=== PATIENT | female | born 1930 | race Asian ===

== ENCOUNTER 2017-10-17 10:36 | Inpatient (IN) | payer MEDICAID, MEDICARE ==
[~2017-10-17] VITALS: Ht 149.9 cm; Wt 40.4 kg
[~2017-10-17 10:36] MED LIST: ASA81 PO; HYDR12.55 PO; ISO10 PO; LIP10 PO; LISI-600 PO; NOR10 PO
[2017-10-17 10:38] VITALS: BP_SYST 147
[2017-10-17] MEDS ORDERED: PRAM0.5T3 PO (10:53)
[2017-10-17] MEDS ORDERED: DONE5TAB3 PO (10:53)
[2017-10-17] MEDS ORDERED: MELO15TA13 PO (10:53)
[2017-10-17 11:07] LABS: BASOPHILS # (AUTO) 0.1 K/uL (0.0-0.2); BASOPHILS % (AUTO) 0.7 % (0.0-2.0); EOSINOPHILS # (AUTO) 0.2 K/uL (0.0-0.4); EOSINOPHILS % (AUTO) 2.3 % (0.0-4.0); HEMOGLOBIN 10.8 g/dL (12.0-16.0); LYMPHOCYTES # (AUTO) 1.4 K/uL (1.0-5.5); LYMPHOCYTES % (AUTO) 14.1 % (20.5-51.5); MEAN CORPUSCULAR HEMOGLOBIN 32 pg (27-31); MEAN CORPUSCULAR HGB CONC 34 % (32-36); MEAN CORPUSCULAR VOLUME 95 fL (79.0-98.0); MONOCYTES # (AUTO) 0.4 K/uL (0.0-1.0); NEUTROPHILS # (AUTO) 7.6 K/uL (1.8-7.7); NEUTROPHILS % (AUTO) 78.9 % (40.0-70.0); PLATELET COUNT (AUTO) 252 K/uL (130-430); RED BLOOD CELL COUNT(AUTO) 3.37 MIL/uL (4.2-6.2); RED CELL DISTRIBUTION WIDTH 12.7 % (9.0-15.0); WHITE BLOOD COUNT (AUTO) 9.7 K/uL (4.8-10.8)
[2017-10-17 11:25] LABS: PROTHROMBIN TIME 9.9 SECS (9.5-12.5)
[2017-10-17 11:39] LABS: BILIRUBIN,URINE NEGATIVE (NEGATIVE); CLARITY/URINE CLEAR (CLEAR); COLOR,URINE YELLOW (YELLOW); GLUCOSE,URINE NEGATIVE (NEGATIVE); KETONES,URINE NEGATIVE (NEGATIVE); LEUKOCYTE ESTERASE ,URINE 1+ (NEGATIVE); NITRITE, URINE NEGATIVE (NEGATIVE); PH,URINE 5.5 (5.0-8.0); PROTEIN URINE NEGATIVE (NEGATIVE); UROBILINOGEN,URINE 0.2 (0.2-1.0)
[2017-10-17 11:42] LABS: BLOOD, URINE TRACE (NEGATIVE)
[2017-10-17 11:54] LABS: BARBITURATE, URINE NEGATIVE (NEG <=200); BENZODIAZEPINE, URINE NEGATIVE (NEG <=150); CANNABINOID, URINE NEGATIVE (NEG <=50); COCAINE, URINE NEGATIVE (NEG <=150); METHAMPHETAMINES SCREEN,URINE NEGATIVE (NEG <=500); OPIATE, URINE NEGATIVE (NEG <=100); PHENCYCLIDINE SCREEN,URINE NEGATIVE (NEG <=25); UR TRICYCLIC ANTIDEPRESSANTS NEGATIVE (NEG <=300); URINE AMPHETAMINE NEGATIVE (NEG <=500); URINE METHADONE NEGATIVE (NEG <=200); URINE OXYCODONE SCREEN NEGATIVE (NEG <=100); URINE PROPOXYPHENE SCREEN NEGATIVE (NEG <=300)
[2017-10-17 12:00] LABS: BACTERIA,URINE RARE /HPF (None Seen); MUCUS,URINE 1+ /LPF (None Seen); RBC,URINE 0-3 /HPF (0-3)
[2017-10-17 12:04] LABS: ANION GAP 12 (5-15); CHLORIDE 107 mmol/L (98-107); CREATININE 1.65 mg/dL (0.55-1.30); GLUCOSE 92 mg/dL (70-99); POTASSIUM 4.8 mmol/L (3.5-5.1); SODIUM SERUM 145 mmol/L (136-145); UREA NITROGEN, BLOOD 43 mg/dL (8-21)
[2017-10-17 12:14] LABS: ALANINE AMINOTRANSFERASE 21 U/L (12-78); ALBUMIN 3.9 g/dL (3.4-4.8); ASPARTATE AMINOTRANSFERASE 25 U/L (10-37); FREE T4 (FREE THYROXINE) 1.1 ng/dl (0.8-1.5); TOTAL BILIRUBIN 0.5 mg/dL (0.0-1.0)
[2017-10-17 12:20] LABS: ALCOHOL, BLOOD < 3 mg/dL (<10)
[2017-10-17] MEDS ORDERED: NS 500 ML IV ONE (13:30)
[2017-10-17] MEDS ORDERED: PANTOPRAZOLE SODIUM 40 MG/VIAL (PROTONIX) IVP ONE (13:30)
[2017-10-17 13:35] VITALS: BP_SYST 153
[2017-10-17] MEDS ORDERED: PRAMIPEXOLE DI-HCL 0.25 MG TABLET PO PRN (16:15)
[2017-10-17] MEDS ORDERED: MELOXICAM 7.5 MG TABLET PO PRN (16:15)
[2017-10-17 16:56] VITALS: BP_SYST 139
[2017-10-17] MEDS: KCL 20 mEq in 0.45% NS 1000 mL 1,000 ML IV SCH (17:49)
[2017-10-17 20:00] VITALS: BP_SYST 127
[2017-10-17] MEDS: ISOSORBIDE DINITRATE 10 MG TABLET (ISORDIL) PO SCH (21:06)
[2017-10-17] MEDS: ATORVASTATIN 10 MG TABLET PO SCH (21:06)
[2017-10-17] MEDS: DONEPEZIL HCL 5 MG TABLET (ARICEPT) PO SCH (21:06)
[2017-10-18 00:23] VITALS: BP_SYST 98
[2017-10-18] MEDS: KCL 20 mEq in 0.45% NS 1000 mL 1,000 ML IV SCH ×2 (05:24→18:43)
[2017-10-18 07:14] LABS: BASOPHILS # (AUTO) 0.1 K/uL (0.0-0.2); BASOPHILS % (AUTO) 0.9 % (0.0-2.0); EOSINOPHILS # (AUTO) 0.5 K/uL (0.0-0.4); EOSINOPHILS % (AUTO) 6.1 % (0.0-4.0); LYMPHOCYTES # (AUTO) 1.3 K/uL (1.0-5.5); LYMPHOCYTES % (AUTO) 15.6 % (20.5-51.5); MEAN CORPUSCULAR HEMOGLOBIN 32 pg (27-31); MEAN CORPUSCULAR HGB CONC 33 % (32-36); MEAN CORPUSCULAR VOLUME 95 fL (79.0-98.0); MONOCYTES # (AUTO) 0.5 K/uL (0.0-1.0); MONOCYTES % (AUTO) 6.4 % (1.7-9.3); NEUTROPHILS # (AUTO) 5.8 K/uL (1.8-7.7); PLATELET COUNT (AUTO) 236 K/uL (130-430); RED BLOOD CELL COUNT(AUTO) 3.16 MIL/uL (4.2-6.2); RED CELL DISTRIBUTION WIDTH 12.5 % (9.0-15.0); WHITE BLOOD COUNT (AUTO) 8.1 K/uL (4.8-10.8)
[2017-10-18 07:32] LABS: ANION GAP 8 (5-15); CHLORIDE 106 mmol/L (98-107); CREATININE 1.42 mg/dL (0.55-1.30); GLUCOSE 92 mg/dL (70-99); POTASSIUM 4.4 mmol/L (3.5-5.1); SODIUM SERUM 137 mmol/L (136-145); UREA NITROGEN, BLOOD 33 mg/dL (8-21)
[2017-10-18 07:45] VITALS: BP_SYST 159
[2017-10-18 08:14] LABS: TOTAL IRON BIND. CAPACITY 340 ug/dL (250-450)
[2017-10-18] MEDS: amLODIPine BESYLATE 10 MG TABLET PO SCH (08:16)
[2017-10-18] MEDS: ISOSORBIDE DINITRATE 10 MG TABLET (ISORDIL) PO SCH ×2 (08:17→21:13)
[2017-10-18] MEDS: ASPIRIN 81 MG TAB.CHEW PO SCH (08:17)
[2017-10-18] MEDS: LISINOPRIL 20 MG TABLET PO SCH (08:17)
[2017-10-18 12:00] VITALS: BP_SYST 129
[2017-10-18 16:04] VITALS: BP_SYST 130
[2017-10-18 20:00] VITALS: BP_SYST 125
[2017-10-18] MEDS: ATORVASTATIN 10 MG TABLET PO SCH (21:12)
[2017-10-18] MEDS: DONEPEZIL HCL 5 MG TABLET (ARICEPT) PO SCH (21:13)
[2017-10-19 00:26] VITALS: BP_SYST 107
[2017-10-19 07:46] LABS: BASOPHILS % (AUTO) 0.5 % (0.0-2.0); EOSINOPHILS # (AUTO) 0.5 K/uL (0.0-0.4); EOSINOPHILS % (AUTO) 6.6 % (0.0-4.0); HEMATOCRIT 29.2 % (36-48); HEMOGLOBIN 9.7 g/dL (12.0-16.0); MEAN CORPUSCULAR HEMOGLOBIN 31 pg (27-31); MEAN CORPUSCULAR HGB CONC 33 % (32-36); MEAN CORPUSCULAR VOLUME 95 fL (79.0-98.0); MONOCYTES # (AUTO) 0.4 K/uL (0.0-1.0); MONOCYTES % (AUTO) 5.6 % (1.7-9.3); NEUTROPHILS # (AUTO) 5.3 K/uL (1.8-7.7); NEUTROPHILS % (AUTO) 73.3 % (40.0-70.0); PLATELET COUNT (AUTO) 239 K/uL (130-430); RED BLOOD CELL COUNT(AUTO) 3.09 MIL/uL (4.2-6.2); RED CELL DISTRIBUTION WIDTH 12.8 % (9.0-15.0); WHITE BLOOD COUNT (AUTO) 7.2 K/uL (4.8-10.8)
[2017-10-19 07:47] LABS: ANION GAP 12 (5-15); CALCIUM 8.3 mg/dL (8.4-11.0); CHLORIDE 107 mmol/L (98-107); CREATININE 1.08 mg/dL (0.55-1.30); GLUCOSE 94 mg/dL (70-99); POTASSIUM 4.8 mmol/L (3.5-5.1); SODIUM SERUM 139 mmol/L (136-145); UREA NITROGEN, BLOOD 22 mg/dL (8-21)
[2017-10-19 07:55] VITALS: BP_SYST 140
[2017-10-19] MEDS: LISINOPRIL 20 MG TABLET PO SCH (09:00)
[2017-10-19] MEDS: amLODIPine BESYLATE 10 MG TABLET PO SCH (09:04)
[2017-10-19] MEDS: ASPIRIN 81 MG TAB.CHEW PO SCH (09:07)
[2017-10-19] MEDS: ISOSORBIDE DINITRATE 10 MG TABLET (ISORDIL) PO SCH ×2 (09:07→20:57)
[2017-10-19] MEDS: KCL 20 mEq in 0.45% NS 1000 mL 1,000 ML IV SCH ×2 (09:08→20:56)
[2017-10-19 11:37] VITALS: BP_SYST 128
[2017-10-19 12:07] LABS: FOLATE (FOLIC ACID) 14.1 ng/mL (>3.0)
[2017-10-19 15:33] VITALS: BP_SYST 118
[2017-10-19 20:07] VITALS: BP_SYST 119
[2017-10-19] MEDS: ATORVASTATIN 10 MG TABLET PO SCH (20:56)
[2017-10-19] MEDS: DONEPEZIL HCL 5 MG TABLET (ARICEPT) PO SCH (20:57)
[2017-10-20 01:20] VITALS: BP_SYST 132
[2017-10-20 07:21] LABS: BASOPHILS % (AUTO) 0.6 % (0.0-2.0); EOSINOPHILS # (AUTO) 0.5 K/uL (0.0-0.4); EOSINOPHILS % (AUTO) 6.1 % (0.0-4.0); HEMOGLOBIN 9.6 g/dL (12.0-16.0); LYMPHOCYTES # (AUTO) 1.1 K/uL (1.0-5.5); LYMPHOCYTES % (AUTO) 14.5 % (20.5-51.5); MEAN CORPUSCULAR HEMOGLOBIN 32 pg (27-31); MEAN CORPUSCULAR HGB CONC 33 % (32-36); MEAN CORPUSCULAR VOLUME 95 fL (79.0-98.0); MONOCYTES # (AUTO) 0.5 K/uL (0.0-1.0); MONOCYTES % (AUTO) 6.3 % (1.7-9.3); NEUTROPHILS # (AUTO) 5.5 K/uL (1.8-7.7); NEUTROPHILS % (AUTO) 72.5 % (40.0-70.0); PLATELET COUNT (AUTO) 221 K/uL (130-430); RED BLOOD CELL COUNT(AUTO) 3.04 MIL/uL (4.2-6.2); RED CELL DISTRIBUTION WIDTH 12.8 % (9.0-15.0); WHITE BLOOD COUNT (AUTO) 7.6 K/uL (4.8-10.8)
[2017-10-20 07:32] LABS: ANION GAP 8 (5-15); CALCIUM 8.7 mg/dL (8.4-11.0); CHLORIDE 107 mmol/L (98-107); CREATININE 1.17 mg/dL (0.55-1.30); GLUCOSE 81 mg/dL (70-99); POTASSIUM 5.2 mmol/L (3.5-5.1); SODIUM SERUM 136 mmol/L (136-145); UREA NITROGEN, BLOOD 19 mg/dL (8-21)
[2017-10-20 08:00] VITALS: BP_SYST 146
[2017-10-20] MEDS: ISOSORBIDE DINITRATE 10 MG TABLET (ISORDIL) PO SCH (09:21)
[2017-10-20] MEDS: ASPIRIN 81 MG TAB.CHEW PO SCH (09:21)
[2017-10-20] MEDS: LISINOPRIL 20 MG TABLET PO SCH (09:22)
[2017-10-20] MEDS: amLODIPine BESYLATE 10 MG TABLET PO SCH (09:22)
[2017-10-20] MEDS: KCL 20 mEq in 0.45% NS 1000 mL 1,000 ML IV SCH (12:48)
[2017-10-20 13:09] VITALS: BP_SYST 112
[2017-10-20 16:15] VITALS: BP_SYST 110
[2017-10-20 17:59] VITALS: BP_SYST 112
[2017-10-20 20:09] VITALS: BP_SYST 150
== END 2017-10-20 20:10 | disposition home or self-care (01) | DRG 469 ==
LOC: SED 10:36 → STU 13:13
PROVIDERS: ADMIT Family Medicine; ATTEND Family Medicine
DX: N17.9 Acute kidney failure, unspecified (principal); E86.0 Dehydration; G30.9 Alzheimer's disease, unspecified; F02.80 Dementia in other diseases classified elsewhere, unspecified severity, without behavioral disturbance, psychotic disturbance, mood disturbance, and anxiety; D64.9 Anemia, unspecified; I10 Essential (primary) hypertension; R79.89 Other specified abnormal findings of blood chemistry; E78.00 Pure hypercholesterolemia, unspecified; Z79.899 Other long term (current) drug therapy; Z79.82 Long term (current) use of aspirin; Z90.49 Acquired absence of other specified parts of digestive tract
CPT/HCPCS: 36415; 70450-TC; 71045; 74018; 80048; 80053; 80307; 81000-TC; 82140-TC; 82607; 82728; 82746; 83540-TC; 83550-TC; 83605; 83880; 84439; 84484; 85025; 85610-TC; 87040-TC; 87086; 93005; 99285; C9113; G0482; J3480; J7040